=== PATIENT | male | born 1990 | race Caucasian/White ===

== ENCOUNTER 2016-10-20 21:35 | Emergency (ER) | payer OTHER ==
[~2016-10-20] VITALS: Ht 167.6 cm; Wt 56.7 kg
[2016-10-20] MEDS ORDERED: ACETAMINOPHEN 500 MG TAB (TYLENOL) PO ONE (22:30)
[2016-10-20] MEDS ORDERED: IBUPROFEN 800 MG (MOTRIN) TAB PO ONE (22:30)
[2016-10-20] MEDS ORDERED: LACTATED RINGERS 1,000 ML IV ONE (22:32)
[2016-10-20] MEDS ORDERED: ONDANSETRON 4 MG/2 ML (SDV) Z0FRAN ONE (22:33)
[2016-10-20] MEDS ORDERED: LACTATED RINGERS 1,000 ML IV STA (22:36)
[2016-10-20 22:44] LABS: BILIRUBIN,URINE NEGATIVE (NEGATIVE); KETONES,URINE NEGATIVE (NEGATIVE); LEUKOCYTE ESTERASE ,URINE NEGATIVE (NEGATIVE); NITRITE,URINE NEGATIVE (NEGATIVE); PH,URINE 8 (5-9); PROTEIN,URINE NEGATIVE (NEGATIVE); UROBILINOGEN,URINE NORMAL (NORMAL)
[2016-10-20] MEDS ORDERED: ONDANSETRON 4 MG/2 ML (SDV) Z0FRAN IVP ONE (22:45)
[2016-10-20 22:54] LABS: WBC,URINE 0-2 /HPF
[2016-10-20 23:01] LABS: BASOPHILS % (AUTO) 0 % (0-10); EOSINOPHILS # (AUTO) 0.2 10^3/uL (0.0-0.3); EOSINOPHILS % (AUTO) 2 % (0-10); LYMPHOCYTES # (AUTO) 1.3 X 10^3 (1.0-4.0); LYMPHOCYTES % (AUTO) 14 % (12-44); MEAN CORPUSCULAR HEMOGLOBIN 29 PG (25-34); MEAN CORPUSCULAR HGB CONC 34 G/DL (32-36); MEAN CORPUSCULAR VOLUME 84 FL (80-99); MEAN PLATELET VOLUME 9.6 FL (7.4-10.4); MONOCYTES # (AUTO) 1.2 X 10^3 (0.0-1.0); MONOCYTES % (AUTO) 13 % (0-12); NEUTROPHILS # (AUTO) 6.6 X 10^3 (1.8-7.8); NEUTROPHILS % (AUTO) 71 % (42-75); PLATELET COUNT 298 10^3/uL (130-400); RED BLOOD COUNT 4.72 10^6/uL (4.35-5.85); RED CELL DISTRIBUTION WIDTH 12.1 % (10.0-14.5); WHITE BLOOD COUNT 9.4 10^3/uL (4.3-11.0)
[2016-10-20 23:11] LABS: ALANINE AMINOTRANSFERASE 13 U/L (0-55); AMYLASE 47 U/L (25-125); ANION GAP 13 MMOL/L (5-14); ASPARTATE AMINO TRANSFERASE 25 U/L (5-34); BILIRUBIN,TOTAL 0.9 MG/DL (0.1-1.0); BLOOD UREA NITROGEN 10 MG/DL (7-18); BUN/CREATININE RATIO 11; CALCIUM 9.3 MG/DL (8.5-10.1); CARBON DIOXIDE 23 MMOL/L (21-32); CHLORIDE 101 MMOL/L (98-107); CREATININE SERUM 0.94 MG/DL (0.60-1.30); GFR ESTIMATED > 60; GLUCOSE 104 MG/DL (70-105); LIPASE 20 U/L (8-78); SODIUM 137 MMOL/L (135-145); TOTAL PROTEIN 7.9 GM/DL (6.4-8.2)
[2016-10-21] MEDS ORDERED: cefTRIAXone 1 GM (ROCEPHIN) VIAL ONE (00:18)
[2016-10-21] MEDS ORDERED: LEVOFLOXACIN 500 MG TAB (LEVAQUIN) ONE (00:18)
[2016-10-21] MEDS ORDERED: methylPREDNISolone 125 MG (Solu-MEDROL) VIAL ONE (00:18)
[2016-10-21] MEDS ORDERED: NS (IVPB) 50 ML ONE (00:18)
[2016-10-21 00:35] VITALS: BP 137/87
--- NOTE | 2016-10-21 02:26 | ED General ---
General Chief Complaint: Fever-Adult/Adol Stated Complaint: FEVER/NAUSEA/VOMITING Nursing Triage Note: INTERMITTANT FEVER X5 DAYS, SORE THROAT, CONGESTION Nursing Sepsis Screen: Possible Sepsis Risk Source of Information: Patient History of Present Illness Time Seen by Provider: 22:14 Initial Comments PT STATES HE HAS HAD SUBJECTIVE FEVER OFF AND ON X 5 DAYS PT HAS CONTINUED TO WORK AND WORKED ALL DAY TODAY C/O SORE THROAT C/O NASAL CONGESTION, UNABLE TO BLOW ANYTHING OUT OF HIS NOSE HAS HAD A NON-PRODUCTIVE COUGH AND RASPY BREATHING/WHEEZING OFF AND ON NO CHEST PAIN OR SHORTNESS OF BREATH C/O HEADACHE TOOK 2 MOTRIN THIS MORNING, 2 AT 1400 AND 2 AT 1700 TODAY, WITH OUT RELIEF OF SYMPTOMS--"THEY KEEP COMING BACK" NO KNOWN SICK CONTACTS NO HISTORY OF SIMILAR HAS NOT SOUGHT CARE UNTIL TODAY SYMPTOMS NO DIFFERENT TODAY PCP: ROSA NIÑO Allergies and Home Medications Allergies Coded Allergies: No Known Drug Allergies (Unverified , 10/20/16) Home Medications Benzonatate 100 Mg Capsule, 1-2 TAB PO TID, #30 Prescribed by: ANDRÉS AVALOS on 10/21/16 0233 Levofloxacin 500 Mg Tablet, 500 MG PO DAILY, #10 Prescribed by: ANDRÉS AVALOS on 10/21/16 0233 Methylprednisolone 4 Mg Tab.ds.pk, 4 MG PO UD, #1 Prescribed by: ANDRÉS AVALOS on 10/21/16 0233 Triamcinolone Acetonide 10.8 Ml [place], 2 SPRAY NSEACH BID, #1 Prescribed by: ANDRÉS AVALOS on 10/21/16 0233 Constitutional: see HPI, fever, malaise EENTM: see HPI, nose congestion, throat pain, No nose pain, No throat swelling Respiratory: cough, No dyspnea on exertion, No orthopnea, No short of breath, wheezing Cardiovascular: no symptoms reported Gastrointestinal: no symptoms reported Genitourinary: no symptoms reported Musculoskeletal: no symptoms reported Skin: no symptoms reported Psychiatric/Neurological: See HPI, Headache, Denies Numbness, Denies Paresthesia, Denies Seizure, Denies Tingling, Denies Weakness Hematologic/Lymphatic: No Symptoms Reported Immunological/Allergic: no symptoms reported Past Uhgbkwf-Excgwu-Orbmed Hx Patient Social History Alcohol Use: Denies Use Recreational Drug Use: No Smoking Status: Never a Smoker Type Used: Smokeless Tobacco 2nd Hand Smoke Exposure: No Recent Foreign Travel: No Contact w/Someone Who Travel: No Recent Infectious Disease Expo: No Recent Hopitalizations: No Immunizations Up To Date Tetanus Booster (TDap): Less than 5yrs PED Vaccines UTD: Yes Seasonal Allergies Seasonal Allergies: No Surgeries HX Surgeries: Yes (BMT'S ) Surgeries: Adenoidectomy, Ear Surgery, Tonsillectomy Respiratory Hx Respiratory Disorders: No Cardiovascular Hx Cardiac Disorders: No Neurological Hx Neurological Disorders: No Reproductive System Hx Reproductive Disorders: No Genitourinary Hx Genitourinary Disorders: No Gastrointestinal Hx Gastrointestinal Disorders: No Musculoskeletal Hx Musculoskeletal Disorders: No Endocrine Hx Endocrine Disorders: No HEENT HX ENT Disorders: Yes HEENT Disorders: Chronic Ear Infection, Tonsilitis Cancer Hx Cancer: No Psychosocial Hx Psychiatric Problems: No Integumentary HX Skin/Integumentary Disorder: No Blood Transfusions Hx Blood Disorders: No Physical Exam Vital Signs Vital Sign - Last 12Hours 10/20/16 22:13 Temp 102.0 Pulse 121 Resp 18 B/P (MAP) 149/97 Pulse Ox 99 O2 Delivery Room Air Capillary Refill : Less Than 3 Seconds General Appearance: No Apparent Distress, WD/WN, Thin, Other (DOES NOT APPEAR ILL OR TO BE IN ANY DISCOMFORT) HEENT: PERRL/EOMI, TMs Normal, Pharyngeal Erythema, No Photophobia, Other ( NASAL MUCOSAL EDEMA. + MAXILLARY SINUS TENDERNESS BILATERALLLY) Neck: Full Range of Motion, Normal Inspection, Supple, No Carotid Bruit, No JVD , Other (MILD TENDERNESS AND MUSCLE SPASMS TO LEFT LATERAL NECK AND TRAPEZIUS MUSCLE AREA) Respiratory: Chest Non Tender, Normal Breath Sounds, No Accessory Muscle Use, No Respiratory Distress Cardiovascular: No Edema, No JVD, No Murmur, Normal Peripheral Pulses, Tachycardia Gastrointestinal: Normal Bowel Sounds, No Organomegaly, No Pulsatile Mass, Non Tender, Soft Back: Normal Inspection, No CVA Tenderness, No Vertebral Tenderness Extremity: Normal Capillary Refill, Normal Inspection, Normal Range of Motion, Non Tender, No Calf Tenderness, No Pedal Edema Neurologic/Psychiatric: Alert, Oriented x3, No Motor/Sensory Deficits, Normal Mood/Affect, 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 Skin: Normal Color, Warm/Dry, No Rash Progress/Results/Core Measures Results/Orders Lab Results Laboratory Tests Test 10/20/16 22:20 10/20/16 22:52 Range/Units Urine Color YELLOW Urine Clarity CLEAR Urine pH 8 5-9 Urine Specific [place] 1.010 L 1.016-1.022 Urine Protein NEGATIVE NEGATIVE Urine Glucose (UA) NEGATIVE NEGATIVE Urine Ketones NEGATIVE NEGATIVE Urine Nitrite NEGATIVE NEGATIVE Urine Bilirubin NEGATIVE NEGATIVE Urine Urobilinogen NORMAL NORMAL MG/DL Urine Leukocyte Esterase NEGATIVE NEGATIVE Urine RBC (Auto) NEGATIVE NEGATIVE Urine RBC NONE /HPF Urine WBC 0-2 /HPF Urine Crystals NONE /LPF Urine Bacteria TRACE /HPF Urine Casts NONE /LPF Urine Mucus NEGATIVE /LPF Urine Culture Indicated NO Sodium Level 137 135-145 MMOL/L Potassium Level 4.0 3.6-5.0 MMOL/L Chloride Level 101 98-107 MMOL/L Carbon Dioxide Level 23 21-32 MMOL/L Anion Gap 13 5-14 MMOL/L Blood Urea Nitrogen 10 7-18 MG/DL Creatinine 0.94 0.60-1.30 MG/DL Estimat Glomerular Filtration Rate > 60 BUN/Creatinine Ratio 11 Glucose Level 104 70-105 MG/DL Lactic Acid Level 0.82 0.50-2.00 MMOL/L Calcium Level 9.3 8.5-10.1 MG/DL Total Bilirubin 0.9 0.1-1.0 MG/DL Aspartate Amino Transf (AST/SGOT) 25 5-34 U/L Alanine Aminotransferase (ALT/SGPT) 13 0-55 U/L Alkaline Phosphatase 77 40-136 U/L Total Protein 7.9 6.4-8.2 GM/DL Albumin 4.0 3.2-4.5 GM/DL Amylase Level 47 25-125 U/L Lipase 20 8-78 U/L Monoscreen NEGATIVE NEGATIVE Group A Streptococcus Screen NEGATIVE NEGATIVE White Blood Count 9.4 4.3-11.0 10^3/uL Red Blood Count 4.72 4.35-5.85 10^6/uL Hemoglobin 13.6 13.3-17.7 G/DL Hematocrit 40 40-54 % Mean Corpuscular Volume 84 80-99 FL Mean Corpuscular Hemoglobin 29 25-34 PG Mean Corpuscular Hemoglobin Concent 34 32-36 G/DL Red Cell Distribution Width 12.1 10.0-14.5 % Platelet Count 298 130-400 10^3/uL Mean Platelet Volume 9.6 7.4-10.4 FL Neutrophils (%) (Auto) 71 42-75 % Lymphocytes (%) (Auto) 14 12-44 % Monocytes (%) (Auto) 13 H 0-12 % Eosinophils (%) (Auto) 2 0-10 % Basophils (%) (Auto) 0 0-10 % Neutrophils # (Auto) 6.6 1.8-7.8 X 10^3 Lymphocytes # (Auto) 1.3 1.0-4.0 X 10^3 Monocytes # (Auto) 1.2 H 0.0-1.0 X 10^3 Eosinophils # (Auto) 0.2 0.0-0.3 10^3/uL Basophils # (Auto) 0.0 0.0-0.1 10^3/uL My Orders Orders - ANDRÉS AVALOS DO Saline Lock/Iv-Start (10/20/16 22:24) Amylase (10/20/16 22:24) Cbc With Automated Diff (10/20/16 22:24) Comprehensive Metabolic Panel (10/20/16 22:24) Lactic Acid Analyzer (10/20/16 22:24) Lipase (10/20/16 22:24) Monotest (10/20/16 22:24) Rapid Strep A Screen (10/20/16 22:24) Ua Culture If Indicated (10/20/16 22:24) Blood Culture (10/20/16 22:24) Chest Pa/Lat (2 View) (10/20/16 22:24) Acetaminophen Tablet (Tylenol Tablet) (10/20/16 22:30) Ibuprofen Tablet (Motrin Tablet) (10/20/16 22:30) Lactated Ringers (Lr 1000 Ml Iv Solution (10/20/16 22:36) Ondansetron Injection (Zofran Injectio (10/20/16 22:45) Lactated Ringers (Lr 1000 Ml Iv Solution (10/20/16 22:32) Ondansetron Injection (Zofran Injectio (10/20/16 22:33) Methylprednisolone Sod Succ (Solu-Medrol (10/21/16 00:18) Levofloxacin Tablet (Levaquin Tablet) (10/21/16 00:18) Ceftriaxone Injection (Rocephin Injectio (10/21/16 00:18) Ns (Ivpb) (Sodium Chloride 0.9% Ivpb Bag (10/21/16 00:18) Medications Given in ED Current Medications Medications Dose Ordered Sig/Josh Route Start Time Stop Time Status Last Admin Dose Admin Acetaminophen 1,000 mg ONCE ONCE PO 10/20/16 22:30 10/20/16 22:31 DC 10/20/16 22:40 1,000 MG Ceftriaxone Sodium 1,000 mg STK-MED ONCE .ROUTE 10/21/16 00:18 10/21/16 01:42 DC 10/21/16 00:25 1,000 MG Ibuprofen 800 mg ONCE ONCE PO 10/20/16 22:30 10/20/16 22:31 DC 10/20/16 22:40 800 MG Levofloxacin 500 mg STK-MED ONCE .ROUTE 10/21/16 00:18 10/21/16 01:42 DC 10/21/16 00:24 500 MG Methylprednisolone Sodium Succinate 125 mg STK-MED ONCE .ROUTE 10/21/16 00:18 10/21/16 01:42 DC 10/21/16 00:24 125 MG Ondansetron HCl 4 mg ONCE ONCE IVP 10/20/16 22:45 10/20/16 22:46 DC 10/20/16 22:40 4 MG Sodium Chloride 50 ml @ ud STK-MED ONCE .ROUTE 10/21/16 00:18 10/21/16 01:42 DC 10/21/16 00:25 100 MLS/HR Vital Signs/I&O Vital Sign - Last 12Hours 10/20/16 10/20/16 10/20/16 10/21/16 22:13 22:40 22:40 00:35 Temp 102.0 102.0 102.0 99.0 Pulse 121 90 Resp 18 18 B/P (MAP) 149/97 Pulse Ox 99 100 O2 Delivery Room Air Room Air Blood Pressure Mean: 114 Progress Note : Progress Note TEMP AND HEART RATE DOWN AT DISMISSAL. OTHER SYMPTOMS IMPROVED WELL UNEVENTFUL ER STAY Diagnostic Imaging Comments CXR--LLL INFILTRATE, PENDING RADIOLOGIST REVIEW Reviewed: Reviewed by Me Departure Impression Impression: Primary Impression: Pneumonia Additional Impression: Sinusitis Disposition: 01 HOME, SELF-CARE Condition: Improved Departure-Patient Inst. Referrals: KIERAN JOHNSON,LOCAL PHYSICIAN (PCP) Primary Care Physician Patient Instructions: Community-Acquired Pneumonia, Adult (DC), Sinusitis, Adult (DC) Add. Discharge Instructions: LOTS OF CLEAR LIQUIDS TYLENOL 1 GRAM/ MOTRIN 800 MG 4 TIMES A DAY FOR PAIN OR FEVER CLARITIN D FOR CONGESTION FOLLOW UP WITH YOUR DR IN 2-3 DAYS FOR FURTHER CARE All discharge instructions reviewed with patient and/or family. Voiced understanding. Scripts Benzonatate (Tessalon Perle) 100 Mg Capsule 1-2 TAB PO TID for Cough, #30 CAP Prov: ANDRÉS AVALOS DO 10/21/16 Levofloxacin (Levaquin) 500 Mg Tablet 500 MG PO DAILY for INFECTION, #10 TAB Prov: ANDRÉS AVALOS DO 10/21/16 Methylprednisolone (Medrol) 4 Mg Tab.ds.pk 4 MG PO UD, #1 PKG Prov: ANDRÉS AVALOS DO 10/21/16 Triamcinolone Acetonide (Nasacort) 10.8 Ml [place] 2 SPRAY NSEACH BID, #1 SPRAY Prov: ANDRÉS AVALOS DO 10/21/16 ANDRÉS AVALOS DO Oct 21, 2016 02:26
[2016-10-21] MEDS ORDERED: METH4TAB PO (02:33)
[2016-10-21] MEDS ORDERED: LEVO500T2 PO (02:33)
[2016-10-21] MEDS ORDERED: TRIA10.8 NSEACH (02:33)
[2016-10-21] MEDS ORDERED: BENZ-13 PO (02:33)
--- NOTE | 2016-10-21 07:09 | Diagnostic Imaging Report ---
INDICATION: Fever FINDINGS: Infiltrate found predominantly within the lingular segment of the left upper lobe is most suggestive of pneumonia. The lung volumes within normal limits. There is no effusion or pneumothorax. IMPRESSION: Lingular pneumonia Dictated by: Dictated on workstation # [id number]
== END 2016-10-21 00:35 | disposition home or self-care (01) ==
LOC: ER 21:39
DX: J18.9 Pneumonia, unspecified organism (principal); J32.9 Chronic sinusitis, unspecified; Z90.89 Acquired absence of other organs
CPT/HCPCS: 36415; 71020; 80053; 81000; 82150; 83605; 83690; 85025; 86308; 87040; 87430; 96361; 96374; 96375

== ENCOUNTER 2019-09-22 13:25 | Outpatient (RCR) | payer BC, OTHER ==
[~2019-09-22 13:25] MED LIST: BENZ100C18 PO; LEVO500T2 PO; METH4TAB PO; TRIA10.8 NSEACH
[2019-09-22 15:37] LABS: SEMEN VOLUME 4.1 ML (1.5-5.0)
== END 2019-12-21 | disposition home or self-care (01) ==
LOC: LAB 13:25
PROVIDERS: ATTEND Obstetrics & Gynecology
DX: N46.9 Male infertility, unspecified (principal)
CPT/HCPCS: 89320